=== PATIENT | male | born 1985 | race Caucasian/White ===

== ENCOUNTER 2016-11-30 22:52 | Emergency (ER) | payer OTHER | END 2016-11-30 23:30 | disposition home or self-care (01) | LOC: ER 22:52 | DX: J32.9 Chronic sinusitis, unspecified (principal); G43.909 Migraine, unspecified, not intractable, without status migrainosus; F17.210 Nicotine dependence, cigarettes, uncomplicated; Z87.440 Personal history of urinary (tract) infections; Z88.0 Allergy status to penicillin; Z91.010 Allergy to peanuts ==